=== PATIENT | female | born 1980 | race Caucasian/White ===

== ENCOUNTER 2023-06-01 13:51 | Outpatient (RCR) | payer MEDICAID, SELFPAY | END 2023-09-18 13:48 | disposition home or self-care (01) | LOC: HO.WCC 13:51 | PROVIDERS: PCP Family Medicine; Visit Provider Surgery | DX: Z43.1 Encounter for attention to gastrostomy (principal); Z79.899 Other long term (current) drug therapy | CPT/HCPCS: 99212 ==